=== PATIENT | male | born 1985 | race Caucasian/White ===

== ENCOUNTER → 2016-12-20 | Outpatient (CLI) | payer BC | LOC: KOH-I 15:05 | DX: M65.9 Synovitis and tenosynovitis, unspecified (principal) | CPT/HCPCS: 73110 ==

== ENCOUNTER → 2017-01-27 | Outpatient (CLI) | payer BC | LOC: KOH-I 11:59 | DX: L03.115 Cellulitis of right lower limb (principal) | CPT/HCPCS: 73590 ==